=== PATIENT | male | born 1985 | race Caucasian/White ===

== ENCOUNTER 2017-07-16 18:01 | Emergency (ER) | payer MEDICAID ==
--- NOTE | 2017-07-16 19:35 | Emergency Department Record ---
History of Present Illness - General Chief complaint: Extremity Problem Stated complaint: LT ANKLE SWOLLEN/PAIN Time Seen by Provider: 07/16/17 19:30 Source: Patient Mode of Arrival: Ambulatory Limitations: No limitations - History of Present Illness Initial comments: The patient is here due to L ankle pain for 5 days. He twisted the ankle 5 days ago and has had pain and has been limping on it since. The patient denies any new issues or any new trauma or injury. MD Complaint: Extremity pain Onset/Timin -: Days(s) Location: Left, Ankle Radiation: Proximal Severity scale (1-10): 8 Quality: Aching Consistency: Constant Improves with: Rest Worsens with: Walking, Weight bearing - Related Data Home Medications Medication Instructions Recorded Confirmed Last Taken No Home Med [NO HOME MEDS] 07/16/17 07/16/17 Unknown Allergies Allergy/AdvReac Type Severity Reaction Status Date / Time No Known Drug Allergies Allergy Verified 07/16/17 19:23 Travel Screening - Travel/Exposure Within Last 30 Days Have you traveled within the last 30 days?: No - Travel/Exposure Within Last Year Have you traveled outside the [place] in the last year?: No - Additonal Travel Details Have you been exposed to anyone with a communicable illness?: No - Travel Symptoms Symptom Screening: None Review of Systems Constitutional: Denies: Chills, Fever Eyes: Denies: Eye discharge ENT: Denies: Congestion Respiratory: Denies: Cough Past Medical History - SOCIAL HISTORY Smoking Status: Never smoker Alcohol Use: Occasional Drug Use: None - RESPIRATORY Hx Respiratory Disorders: No - CARDIOVASCULAR Hx Cardio Disorders: No - NEURO Hx Neuro Disorders: No - GI Hx GI Disorders: No - Hx Genitourinary Disorders: No - ENDOCRINE Hx Endocrine Disorders: No - MUSCULOSKELETAL Hx Musculoskeletal Disorders: No - PSYCH Hx Psych Problems: No - HEMATOLOGY/ONCOLOGY Hx Hematology/Oncology Disorders: No Family Medical History Any Significant Family History?: Yes Physical Exam - General General Appearance: Alert, Oriented x3, Cooperative, No acute distress - Head Head exam: Atraumatic, Normocephalic - Eye Eye exam: Normal appearance, PERRL - Extremities Extremities exam: Joint swelling (L ankle.), Normal capillary refill, Tenderness (There is diffuse tenderness to the distal L fibula.). negative: Normal inspection (There is mild to moderate edema to the L ankle area.), Full ROM - Neurological Neurological exam: Alert. negative: Motor sensory deficit Course Vital Signs 07/16/17 19:19 Temperature 98.8 F Pulse Rate 66 Respiratory 16 Rate Blood Pressure 124/73 Pulse Ox 97 - Reevaluation(s) Reevaluation #1: The patient is doing very well at this time. I did explain the xray results and the need for F/U. 07/16/17 20:42 Medical Decision Making - Data Complexity MDM Data: X-Ray Ordered and/or Reviewed - Radiology Data Radiology results: Report reviewed (L ankle: Neg for fx or dislocation.) Disposition Disposition: Discharge Clinical Impression: Left ankle sprain Qualifiers: Encounter type: initial encounter Involved ligament of ankle: unspecified ligament Qualified Code(s): S93.402A - Sprain of unspecified ligament of left ankle, initial encounter Disposition: Home, Self-Care Condition: (1) Good Instructions: Ankle Sprain (ED) Additional Instructions: Please ice and elevate the L ankle with NO weight bearing on the L leg for at least 3 days. Please use crutches at all times. Please see your PCP for recheck in 3-5 days. Return to the ER if worse. Forms: Patient Portal Access Time of Disposition: 20:44 Quality - Quality Measures Quality Measures: N/A - Blood Pressure Screening View Details: Yes Does Patient Have Any of the Following: No Blood Pressure Classification: Pre-Hypertensive BP Reading Systolic Measurement: 124 Diastolic Measurement: 73 Screening for High Blood Pressure: < Pre-Hypertensive BP, F/U Documented > [ [id number]] Pre-Hypertensive Follow-up Interventions: Referral to alternative/primary care provider.
--- NOTE | 2017-07-17 14:07 | RADIOLOGY REPORT ---
EXAM: LEFT ANKLE HISTORY: PATIENT TWISTED LEFT ANKLE WITH PAIN AND SWELLING. TECHNIQUE: Three views of the left ankle were obtained. Comparison: None. FINDINGS: Soft tissue swelling is seen particularly laterally. No definite fracture of the left ankle identified. No dislocation is seen. Very tiny posterior calcaneal spur. IMPRESSION: SOFT TISSUE SWELLING PARTICULARLY LATERALLY. NO DEFINITE FRACTURE IDENTIFIED. JOB NUMBER: [id number] MTDD
== END 2017-07-16 20:54 | disposition home or self-care (01) ==
LOC: ER 18:01
DX: S93.402A Sprain of unspecified ligament of left ankle, initial encounter (principal); W50.2XXA Accidental twist by another person, initial encounter
CPT/HCPCS: 99283